=== PATIENT | female | born 1965 | race Caucasian/White ===

== ENCOUNTER → 2017-06-24 | Outpatient (CLI) | payer OTHER ==
--- NOTE | 2017-06-24 11:48 | KCIC ---
CT MAXILLOFACIAL WO CONTRAST Indication: Recurrent acute sinusitis, congestion, cough, ringing in ears, drainage Technique: NoncontrastCT imaging was performed of the[maxillofacial region], multiplanar reconstruction images submitted. One or more of the following individualized dose reduction techniques were utilized for this examination: 1. Automated exposure control 2. Adjustment of the mA and/or kV according to patient size 3. Use of iterative reconstruction technique. Contrast: None Comparison: None Findings: There is umon-bi-lsglzwav more confluent mucosal thickening or possibly mucus retention cyst at the floor of the left maxillary sinus in greatest dimension 1.6 cm AP by 0.8 cm CC by 1.5 cm transverse, internal density measurements heterogeneous. This is adjacent to hardware from dental implant which slightly reaches the left inferior maxillary wall, likely adjacent cysts of to approximately 0.6 cm. Ostiomeatal units are patent bilaterally. There are no air-fluid levels of the paranasal sinuses. Remainder of paranasal sinuses are overall aerated. The mastoid air cells are also aerated. There is artifact created by dental hardware. IMPRESSION: 1. There is oiud-et-risvdrym mucosal thickening or possibly variably complex mucous retention cyst at the floor of the left maxillary sinus adjacent to smaller probable cyst near tip of dental hardware which slightly breaches the cortical surface of the left inferior maxillary wall. There are no air-fluid levels of the paranasal sinuses. Electronically signed by: Riley Rico MD (06/24/2017 11:46 AM) [id number]
== END | disposition home or self-care (01) ==
LOC: KCIC CT 09:51
PROVIDERS: ATTEND Otolaryngology
DX: J01.91 Acute recurrent sinusitis, unspecified (principal); H93.13 Tinnitus, bilateral
CPT/HCPCS: 70486

== ENCOUNTER → 2018-01-14 | Outpatient (CLI) | payer OTHER ==
[2018-01-14] MEDS: IOHEXOL 300 MG/ML 100ML VIAL. IV (14:27)
[2018-01-14] MEDS: IOHEXOL 240 MG/ML 50ML VIAL. PO (14:27)
== END | disposition home or self-care (01) ==
LOC: KCIC CT 12:48
DX: K42.9 Umbilical hernia without obstruction or gangrene (principal); Z90.49 Acquired absence of other specified parts of digestive tract
CPT/HCPCS: 74177; Q9966; Q9967

== ENCOUNTER → 2021-10-04 | Outpatient (CLI) | payer OTHER ==
--- NOTE | 2021-10-04 11:23 | KCIC ---
Bilateral digital screening mammograms: Reason for examination: Routine screening. Comparison is made to previous studies dated 01/26/2016 and 02/13/2012. Interpretation was made with the benefit of CAD. The skin and nipples show no abnormalities. No abnormal axillary lymph nodes are seen. The breast par enchyma shows scattered fibroglandular density. (Breast density: Category B.) There are no dominant m asses, suspicious calcifications or architectural distortions. Some benign calcifications are present . Impression: No evidence of malignancy. Recommend routine screening. BI-RADS category 2: Benign "Our facility is accredited by the [employer] Mammography [employer]." This patient's information has been entered into a reminder system for the patient to be notified wit h the results of her examination and a target date for the next mammogram. Electronically signed by: Marcella Brennan MD (10/04/2021 9:20 AM) [id number]
== END ==
LOC: KCIC MAMMO 08:12
PROVIDERS: ATTEND Obstetrics & Gynecology
DX: Z12.31 Encounter for screening mammogram for malignant neoplasm of breast (principal)
CPT/HCPCS: 77067